=== PATIENT | male | born 1990 | race African-American/Black ===

== ENCOUNTER 2021-08-19 10:56 | Emergency (ER) | payer BC ==
[~2021-08-19] VITALS: Ht 175.3 cm; Wt 74.8 kg
--- NOTE | 2021-08-19 11:09 | NUR ---
TO ER BED 3, C/O ABDOMINAL PAIN ON AND OFF STARTED 08/10/21, DENIES ANY HISTORY OF GI PROBLEMS, ALSO C/O SMALL ROCK LIKE LOOKING STOOLS, AAOX3, BREATHING EVEN AND NON LABORED.
[2021-08-19 11:10] VITALS: BP 135/92
--- NOTE | 2021-08-19 11:10 | NUR ---
pt c/o abd pain since 08/10/21. tolerating r/a well. a/ox4. connected pt to tele monitor and pox
--- NOTE | 2021-08-19 11:11 | NUR ---
DR DUKES AT BEDSIDE
--- NOTE | 2021-08-19 11:19 | NUR ---
URINE SAMPLE COLLECTED AND SENT TO LAB
--- NOTE | 2021-08-19 11:21 | NUR ---
[employer]ING [employer]UNICATION[employer] SPECIALIST AT PT'S BEDSIDE
--- NOTE | 2021-08-19 11:31 | NUR ---
PT TAKEN TO CT VIA [facility]
[2021-08-19 11:39] LABS: BASOPHILS % (AUTO) 0.5 % (0.0-2.0); EOSINOPHILS % (AUTO) 4.1 % (0.0-6.0); HEMATOCRIT 49 % (39-51); HEMOGLOBIN 16.8 g/dL (13.5-17.5); LYMPHOCYTES # (AUTO) 1.2 K/uL (0.8-4.8); MEAN CORPUSCULAR HGB CONC 34 g/dl (31.0-36.0); MEAN CORPUSCULAR VOLUME 94 fL (80-96); MONOCYTES # (AUTO) 0.5 K/uL (0.1-1.30); MONOCYTES % (AUTO) 9.1 % (2.0-12.0); NEUTROPHILS # (AUTO) 3.5 K/uL (1.8-8.9); NEUTROPHILS % (AUTO) 64.3 % (43.0-81.0); PLATELET COUNT (AUTO) 207 K/uL (150-450); RED BLOOD CELL COUNT(AUTO) 5.23 MIL/uL (4.5-6.0); WHITE BLOOD COUNT (AUTO) 5.4 K/uL (4.3-11.0)
[2021-08-19 11:40] LABS: BILIRUBIN,URINE NEGATIVE (NEGATIVE); COLOR,URINE YELLOW (YELLOW); LEUKOCYTE ESTERASE ,URINE NEGATIVE (NEGATIVE); NITRITE, URINE NEGATIVE (NEGATIVE); PROTEIN,URINE NEGATIVE (NEGATIVE); UGLUCOSE NEGATIVE (NEGATIVE); UROBILINOGEN,URINE 0.2 EU/dL (0.2)
[2021-08-19 11:56] LABS: ALBUMIN 4.1 g/dL (3.4-5.0); BILIRUBIN,DIRECT 0.1 mg/dL (0.0-0.2); BILIRUBIN,TOTAL 0.4 mg/dL (0.2-1.0); CALCIUM, SERUM 9.1 mg/dL (8.5-10.1); CREATININE 1.2 mg/dL (0.6-1.3); POTASSIUM 4.2 mmol/L (3.5-5.1); TOTAL PROTEIN, SERUM 7.9 g/dL (6.4-8.2)
--- NOTE | 2021-08-19 12:44 | NUR ---
Patient discharged to home in stable condition. Written and verbal after care instructions given. Patient verbalizes understanding of instruction.
== END 2021-08-19 12:44 | disposition home or self-care (01) ==
LOC: ER 10:59
DX: R10.84 Generalized abdominal pain (principal); J45.909 Unspecified asthma, uncomplicated
CPT/HCPCS: 36415; 80048-TC; 80076-TC; 83690-TC; 85025-TC